=== PATIENT | male | born 1960 | race Two or more races ===

== ENCOUNTER → 2025-03-01 | Outpatient (CLI) | payer OTHER, SELFPAY ==
[2025-03-01 08:54] LABS: Glucose Estimated Average 120 mg/dL (80-131); Hemoglobin A1C 5.8 % Hgb (4.8-6.0)
[2025-03-01 08:55] LABS: Prostate Specific Antigen 0.67 ng/mL (0-4.00)
[2025-03-01 09:04] LABS: Alanine Aminotransferase 46 U/L (10-49); Albumin, Serum 4.5 gm/dL (3.4-4.8); Albumin/Globulin Ratio 1.7 (1.2-2.2); Alkaline Phosphatase 67 U/L (46-116); Anion Gap 8 (7-16); Aspartate Amino Transferase 28 U/L (0-34); BUN/Creatinine Ratio 9 Ratio (12-20); Bilirubin,Total 1.4 mg/dL (0.3-1.2); Blood Urea Nitrogen 11 mg/dL (9-23); Calcium 9.4 mg/dL (8.3-10.6); Calcium (Corrected) 9.4 mg/dL (8.5-10.1); Carbon Dioxide 25.9 mMol/L (20.0-31.0); Cardiac Risk Estimate 3.3 RATIO (4.0-6.7); Chloride 103 mMol/L (98-107); Cholesterol 140 mg/dL (132-200); Creatinine (Component) 1.2 mg/dL (0.6-1.3); Globulin 2.6 gm/dL (2.3-3.5); Glucose 140 mg/dL (74-106); HDL Cholesterol 43 mg/dL (40-60); LDL Cholesterol,Calculated 76 mg/dL (0-130); Osmolality,Calculated 275 (275-295); Potassium 2.9 mMol/L (3.4-5.1); Sodium 137 mMol/L (136-145); Total Protein 7.1 gm/dL (5.7-8.2); Triglycerides 106 mg/dL (30-150); eGFR > 60 See Note
[2025-03-01 09:20] LABS: Creatinine MALB Rnd Ur 70 mg/dL (30-125); Microalbumin, Random Urine < 3 mg/L (0-300)
== END | disposition home or self-care (01) ==
LOC: COPL 07:15
PROVIDERS: PCP Family Medicine; Referring Provider Family Medicine; Visit Provider Family Medicine
DX: E11.65 Type 2 diabetes mellitus with hyperglycemia (principal); E78.1 Pure hyperglyceridemia; N42.9 Disorder of prostate, unspecified
CPT/HCPCS: 36415; 80053; 80061; 82043; 82570; 83036; 84153

== ENCOUNTER → 2025-03-02 | Outpatient (CLI) | payer OTHER, SELFPAY ==
[2025-03-02 14:13] LABS: OBS Performed By LAB; OBS QC OK? Yes
[2025-03-02 17:25] LABS: OBS Developer Expiration Date 2-28-27; OBS Developer Lot # 4-24-551749; Occult Blood, Stool Negative (Negative)
== END | disposition home or self-care (01) ==
PROVIDERS: PCP Family Medicine; Referring Provider Family Medicine; Visit Provider Family Medicine
DX: Z12.11 Encounter for screening for malignant neoplasm of colon (principal)
CPT/HCPCS: 82270